=== PATIENT | female | born 1985 | race Caucasian/White ===

== ENCOUNTER 2016-12-05 15:40 | Emergency (ER) | payer OTHER ==
[~2016-12-05] VITALS: Ht 157.5 cm; Wt 49.9 kg
[~2016-12-05 15:40] MED LIST: FLAG500 PO; NAPROSYN 500 M500 MG PO; ZOFRAN ODT4 MG PO; ZOFRAN4 M2 PO
--- NOTE | 2016-12-05 16:42 | ED GENERAL ADULT ---
History of Present Illness General Chief Complaint: General Adult Stated Complaint: VOMITING Source: patient Exam Limitations: no limitations Vital Signs & Intake/Output Vital Signs & Intake/Output Vital Signs Date Time Temp Pulse Resp B/P Pulse O2 O2 Flow FiO2 Ox Delivery Rate 12/05 1904 97.7 93 16 113/66 100 Room Air 12/05 1602 98.0 86 18 117/80 99 Room Air Allergies Coded Allergies: NO KNOWN ALLERGIES (03/30/16) Reconcile Medications Hyoscyamine (Levsin) 0.125 MG TABLET 1 TAB PO Q4 PRN ABDOMINAL SPASMS Ondansetron (Zofran Odt) 4 MG TAB.RAPDIS 1 TAB SL TID PRN NAUSEA Sulfamethoxazole/Trimethoprim (Bactrim Ds Tablet) 800 MG-160 MG TABLET 1 TAB PO BID UTI Triage Note: PT COMPLAINS OF BURNING IN HER VAGIANL AREA SINCE THIS AM, DESCRIBES WHITE AND CRUSTY. Triage Nurses Notes Reviewed? yes Onset: Gradual Duration: day(s): (4) Timing: remote history Injury Environment: home Severity: moderate Severity Numbers: 6 No Modifying Factors: none : No Patient currently breastfeeds: No HPI: Patient is a 31-year-old female presenting to the emergency department with chief complaint of lower abdominal pain, diarrhea with vomiting and nausea going on for the past one week. Nothing seems to make symptoms better or worse. Pain is crampy in nature. She is also reporting dysuria. Denies hematuria. Last menstrual period was 6 months ago. She reports that this may be normal for her as she gets irregular periods. She is also reporting white vaginal discharge and itchiness. She says this feels similar to a previous yeast infection. She is sexually active with one person. They are monogamous. Denies any recent travel. No recent antibiotic use. No fevers or chills. Denies any blood in the diarrhea or the vomiting. She reports that she vomited only "a few times" over the past day or 2. She reports at least 1-2 episodes of loose stool over the past 5-6 days. Denies any discoloration of the stool. ([place] CHERY) Past History Travel History Traveled to [place] past 21 day No Medical History Any Pertinent Medical History? 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 No ([place] CHERY) Review of Systems Review of Systems Constitutional: Reports: no symptoms. Comments Review of systems: See HPI, All other systems negative. Constitutional, no chills fever or weight loss HEENT: No visual changes no sore throat no congestion Cardiovascular: No chest pain ,palpitation Skin, no jaundice no rashes Respiratory: No dyspnea cough sputum or hemoptysis GI: positive nausea and vomiting : No hematuria Muscle skeletal: no back pain, no neck pain, Neurologic: No numbness no confusion, no headaches Psych: No stress anxiety or depression,. Heme/endocrine: No bruising no bleeding no polyuria or polydipsia Immunology: No splenectomy or history of AIDS ([place] CHERY) Physical Exam Physical Exam General Appearance: well developed/nourished, no apparent distress, alert, awake , comfortable Comments: Well-developed well-nourished person in no acute distress HEENT: Pupils equally round and reactive to light and accommodation. Nose is atraumatic. Neck: Normal inspection Back: Nontender, no CVA tenderness. Full range of motion Cardiovascular: Regular rate and rhythms no murmurs rubs or gallops, normal JVP Respiratory: Chest nontender. No respiratory distress.breath sounds clear to auscultation bilaterally Abdomen: Soft, tenderness to palpation in the lower abdomen bilaterally, no rebound or guarding nondistended, no appreciable organomegaly. Normal bowel sounds. No ascites. 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 PELVIC: Milky Way discharge noted in the vaginal canal, no lesions noted on the cervix. External genitalia appears within normal limits. No cervical motion tenderness. Cervical os is closed. No bleeding noted. Adnexal areas are nontender bilaterally. Uterus is nontender. No palpable adnexal masses. Extremity: No edema Neuro: Alert oriented x3 Skin: No appreciable rash on exposed skin, skin is warm and dry. Psych: Mood and affect is normal, memory and judgment is normal. Core Measures ACS in differential dx? No CVA/TIA Diagnosis: No Severe Sepsis Present: No Septic Shock Present: No ([place]) Progress Differential Diagnoses I considered the following diagnoses in my evaluation of the patient: STD, urinary tract infection, viral syndrome, gastroenteritis, electrolyte abnormality, dehydration Plan of Care: Orders Procedure Date/time Status COMPREHENSIVE METABOLIC PANEL 12/05 1704 Complete CBC WITHOUT DIFFERENTIAL 12/05 1704 Complete CULTURE,URINE 12/06 1643 Active TRICHOMONAS 12/06 1643 Complete POTASSIUM HYDROXIDE (AYSE) 12/06 1643 Complete GENITAL CULTURE 12/06 1643 Active CHLAMYDIA-GC DNA PROBE 12/06 1643 Active URINE 12/06 1643 Complete URINALYSIS 12/06 1643 Complete Laboratory Tests 12/05/161824: Anion Gap 12, Estimated GFR > 60, BUN/Creatinine Ratio 20.0, Glucose 98, Calcium 9.5, Total Bilirubin 1.5 H, AST 18, ALT 36, Alkaline Phosphatase 57, Total Protein 7.2, Albumin 4.6, Globulin 2.6, Albumin/Globulin Ratio 1.8, CBC w Diff NO MAN DIFF REQ, RBC 4.04 L, MCV 100.9 H, MCH 33.9 H, RDW 11.7, MPV 8.6, Gran % 58.1, Lymphocytes % 31.9, Monocytes % 8.2, Eosinophils % 1.4, Basophils % 0.4, Absolute Granulocytes 3.5, Absolute Lymphocytes 1.9, Absolute Monocytes 0.5, Absolute Eosinophils 0.1, Absolute Basophils 0, PUBS MCHC 33.6 12/05/161710: Urine Color YEL, Urine Clarity HAZY H, Urine pH 6.0, Ur Specific [place] >= 1.030, Urine Protein NEG, Urine Ketones NEG, Urine Nitrite NEG, Urine Bilirubin NEG, Urine Urobilinogen 0.2, Ur Leukocyte Esterase MOD H, Ur Microscopic SEDIMENT EXAMINED, Urine RBC 5-10 H, Urine WBC 15-25 H, Ur Epithelial Cells MANY H, Urine Bacteria FEW H, Urine Mucus MOD H, Urine Hemoglobin MOD H, Urine Glucose NEG, Urine Test NEGATIVE Microbiology 12/05 1820 GENITAL: AYSE Preparation - COMP 12/05 1820 GENITAL: Trichomonas Preparation - COMP 12/05 1820 GENITAL: Genital Culture - RECD 12/05 1710 URINE ROUT: GC DNA Probe - RECD 12/05 1710 URINE ROUT: Chlamydia DNA Probe (CUONG) - RECD 12/05 1711 URINE ROUT: Urine Culture - RECD Initial ED EKG: none Comments: Patient has 15-25 white blood cells in the urine with moderate nitrates. Not the cleanest sample but patient is symptomatic so we'll treat her with antibiotics. Culture sent off. AYSE and trichomoniasis prep are negative. Patient will be called for any positive results with gonorrhea or Chlamydia in the urine. Her lab work was unremarkable. Elevated bilirubins is nonspecific. She'll be treated symptomatically for the nausea and vomiting with Zofran and Levsin. She'll follow-up with her primary care physician or return for worsening symptoms or concerns. Patient nontoxic vitals are stable. ([place] CHERY) Differential Diagnoses I considered the following diagnoses in my evaluation of the patient: (RENATO MCCALLUM DO) Departure Departure Disposition: HOME OR SELF CARE Condition: Stable Clinical Impression Primary Impression: Urinary tract infection Qualifiers: Urinary tract infection type: site unspecified Hematuria presence: with hematuria Qualified Codes: N39.0 - Urinary tract infection, site not specified; R31.9 - Hematuria, unspecified Referrals: SMITH PIKE APRN (PCP/Family) Additional Instructions: Follow-up with your primary care physician call to make appointment. Increase fluids. Take antibiotics as prescribed. Take Zofran as prescribed for nausea. Use Levsin to help with abdominal discomfort. Return for worsening symptoms or concerns. Departure Forms: Customer Survey General Discharge Information Prescriptions: Current Visit Scripts Sulfamethoxazole/Trimethoprim (Bactrim Ds Tablet) 1 TAB PO BID #6 TAB Ondansetron (Zofran Odt) 1 TAB SL TID PRN NAUSEA #10 TAB Hyoscyamine (Levsin) 1 TAB PO Q4 PRN ABDOMINAL SPASMS #20 TAB ([place] CHERY) PA/HEAD CLEANING PORTER Co-Sign Statement Statement: ED Attending supervision documentation- [] I saw and evaluated the patient. I have also reviewed all the pertinent lab results and diagnostic results. I agree with the findings and the plan of care as documented in the PA's/HEAD CLEANING PORTER's documentation. [X] I have reviewed the ED Record and agree with the PA's/HEAD CLEANING PORTER's documentation. [] Additions or exceptions (if any) to the PAs/HEAD CLEANING PORTER's note and plan are summarized below: [] (RENATO MCCALLUM DO) Critical Care Note Critical Care Note Critical Care Time: non-applicable ([place])
[2016-12-05] MEDS ORDERED: ZOFRAN ODT4 M1 SL (18:25)
[2016-12-05] MEDS ORDERED: LEVSIN0.125 M1 PO (18:25)
[2016-12-05] MEDS ORDERED: BACTRIM DS TAB1 EACH PO (18:25)
[2016-12-05 18:41] LABS: ABSOLUTE BASOPHIL COUNT 0 /CUMM (0.0-0.2); ABSOLUTE EOSINOPHIL COUNT 0.1 /CUMM (0.0-0.7); ABSOLUTE GRANULOCYTE CT 3.5 /CUMM (1.4-6.5); ABSOLUTE LYMPH COUNT 1.9 /CUMM (1.2-3.4); ABSOLUTE MONOCYTE COUNT 0.5 /CUMM (0.10-0.60); BASOPHIL % 0.4 % (0.0-2.0); EOSINOPHIL % 1.4 % (0-5); GRANULOCYTE % 58.1 % (42.2-75.2); HEMATOCRIT 40.8 % (37-47); MEAN CORPUSCULAR HGB 33.9 PG (27.0-31.0); MEAN CORPUSCULAR HGB CONC 33.6 G/DL (33.0-37.0); MEAN CORPUSCULAR VOLUME 100.9 FL (81.0-99.0); MEAN PLATELET VOLUME 8.6 FL (7.4-10.4); PLATELET COUNT 200 /CUMM (130-400); RBC DISTRIBUTION WIDTH 11.7 % (11.5-14.5); RED BLOOD CELL CT 4.04 /CUMM (4.20-5.40); WHITE BLOOD CELL COUNT 6.1 /CUMM (4.8-10.8)
[2016-12-05 19:04] VITALS: BP 113/66
== END 2016-12-05 19:20 ==
LOC: ERH 15:40
PROVIDERS: Physician Assistant
DX: N39.0 Urinary tract infection, site not specified (principal)
CPT/HCPCS: 87070; 81001; 81025; 87086; 87147; 87491; 87591